=== PATIENT | male | born 1940 | race Caucasian/White ===

== ENCOUNTER 2024-09-18 12:46 | Observation (INO) | payer OTHER ==
[2024-09-18 14:48] LABS: BASO % 0.6 % (0-2.0); EOS % 0.3 % (0-4.5); HEMOGLOBIN 15.1 GM/dL (11.7-16.9); LYMPH % 11.6 % (8-40); MCH 31.1 pg (25.7-33.7); MCHC 34.2 g/dl (32.0-35.9); MEAN CELL VOLUME 90.8 fl (80-96); MEAN PLT VOLUME 9.3 fl (7.5-11.1); MONO % 6.7 % (3.8-10.2); NEUT % 80.8 % (42.8-82.8); PLATELET COUNT 143 10^3/uL (134-434); RBC 4.85 M/mm3 (4.00-5.60); RDW 13.6 % (11.9-15.9)
[2024-09-18 14:57] LABS: INR 1.05 (0.83-1.09); PROTHROMBIN TIME (PATIENT) 11.4 SEC (9.7-13.0)
[2024-09-18 15:00] LABS: ACTIVATED PTT 24.7 SECONDS (25.2-36.5)
[2024-09-18 15:03] VITALS: BMI 26.6
[2024-09-18 15:15] LABS: POTASSIUM 4.4 mmol/L (3.5-5.1)
[2024-09-18 15:17] LABS: ALBUMIN 3.6 g/dl (3.4-5.0); BLOOD UREA NITROGEN 18.4 mg/dL (7-18); CALCIUM 8.6 mg/dL (8.5-10.1); MAGNESIUM 2.1 mg/dL (1.8-2.4)
[2024-09-18 15:21] LABS: CREATININE 0.9 mg/dL (0.55-1.3)
[2024-09-18 15:22] LABS: BILIRUBIN,TOTAL 0.6 mg/dL (0.2-1); TOT PROT 7.2 g/dl (6.4-8.2)
[2024-09-18 18:18] VITALS: TEMP 98.1
[2024-09-18] MEDS ORDERED: AZITHROMYCIN IVPB 500 MG/250 ML BAG IVPB ONE (18:25)
[2024-09-18] MEDS ORDERED: CEFTRIAXONE 1 G/50 ML PREMIX 50 ML IVPB ONE (18:25)
[2024-09-18] MEDS: SODIUM CHLORIDE 1,000 ML IV STA (18:30)
[2024-09-18] MEDS: CEFTRIAXONE 1 GM in DEXTROSE 5%-WATER - 100 ML IVPB ONE (18:30)
[2024-09-18] MEDS: AZITHROMYCIN IVPB 500 MG in DEXTROSE 5%-WATER - 250 ML IVPB ONE (18:45)
[2024-09-18] MEDS ORDERED: ENOXAPARIN NA (PORCINE) 40 MG/0.4 ML DISP.SYRIN SQ ONE (21:41)
[2024-09-18] MEDS: ENOXAPARIN NA (PORCINE) 40 MG/0.4 ML DISP.SYRIN SQ SCH (21:46)
[2024-09-19 00:57] VITALS: RESP 17
[2024-09-19 05:44] VITALS: BP 124/53; PULSE 63
[2024-09-19 07:20] LABS: BASO % 0.4 % (0-2.0); EOS % 2.3 % (0-4.5); HEMOGLOBIN 13.8 GM/dL (11.7-16.9); LYMPH % 26.2 % (8-40); MCH 30.6 pg (25.7-33.7); MCHC 32.8 g/dl (32.0-35.9); MEAN PLT VOLUME 9.7 fl (7.5-11.1); NEUT % 60.1 % (42.8-82.8); PLATELET COUNT 130 10^3/uL (134-434); RBC 4.51 M/mm3 (4.00-5.60); RDW 13.1 % (11.9-15.9)
[2024-09-19 07:36] LABS: POTASSIUM 4.1 mmol/L (3.5-5.1)
[2024-09-19 07:41] LABS: ALBUMIN 3.1 g/dl (3.4-5.0)
[2024-09-19 07:42] LABS: MAGNESIUM 1.9 mg/dL (1.8-2.4)
[2024-09-19 07:44] LABS: CREATININE 0.9 mg/dL (0.55-1.3)
[2024-09-19 07:45] LABS: PHOSPHOROUS 2.4 mg/dL (2.5-4.9)
[2024-09-19 07:46] LABS: BILIRUBIN,TOTAL 0.8 mg/dL (0.2-1); TOT PROT 6.4 g/dl (6.4-8.2)
[2024-09-19] MEDS ORDERED: ENOXAPARIN NA (PORCINE) 40 MG/0.4 ML DISP.SYRIN SQ ONE (09:40)
[2024-09-19] MEDS: FINASTERIDE 5 MG TABLET (FP) PO SCH (09:46)
[2024-09-19 13:21] LABS: N-TERMINAL BNP 184.9 pg/ml (5-450)
[2024-09-19] MEDS ORDERED: ATORVASTATIN CA 20 MG TABLET (FP) PO SCH (22:00)
== END 2024-09-19 16:23 | disposition home or self-care (01) ==
LOC: JER 12:46 → JERBED 17:51
PROVIDERS: ADMIT Internal Medicine
PROC: 3E03329 Introduction of Other Anti-infective into Peripheral Vein, Percutaneous Approach (ICD-10-PCS; principal; 2024-09-18)
PROC: 3E023GC Introduction of Other Therapeutic Substance into Muscle, Percutaneous Approach (ICD-10-PCS; 2024-09-18)
PROC: 3E0337Z Introduction of Electrolytic and Water Balance Substance into Peripheral Vein, Percutaneous Approach (ICD-10-PCS; 2024-09-18)
DX: R55 Syncope and collapse (principal); I51.7 Cardiomegaly; E78.5 Hyperlipidemia, unspecified; N40.0 Benign prostatic hyperplasia without lower urinary tract symptoms; R91.8 Other nonspecific abnormal finding of lung field; R59.1 Generalized enlarged lymph nodes
CPT/HCPCS: 0241U-QW; 36415; 70450-TC; 71045-TC-FY; 71250-TC; 80053; 82550; 83036; 83735; 83880; 84100; 84484; 85025; 85610; 85730; 87899; 93005; 93010; 93306-TC; 96361; 96365; 96367; 96372; 99285-25; G0378